=== PATIENT | female | born 1960 | race Caucasian/White ===

== ENCOUNTER 2021-10-08 10:46 | Emergency (ER) | payer OTHER ==
[~2021-10-08] VITALS: Ht 157.5 cm; Wt 68.2 kg
[2021-10-08 10:54] VITALS: BP 167/107
[2021-10-08 12:26] LABS: BASOPHILS % (AUTO) 0.5 % (0.0-2.0); EOSINOPHILS % (AUTO) 0.4 % (1.0-6.0); HEMATOCRIT 43.9 % (36-46); LYMPHOCYTES # (AUTO) 1.1 K/uL (1.0-4.8); LYMPHOCYTES % (AUTO) 10.2 % (22.0-44.0); MEAN CORPUSCULAR HEMOGLOBIN 30.2 pg (26.0-34.0); MEAN CORPUSCULAR HGB CONC 34.2 G/dL (31.0-37.0); MEAN CORPUSCULAR VOLUME 88 fL (80-100); MONOCYTES # (AUTO) 0.5 K/uL (0.1-1.0); MONOCYTES % (AUTO) 4.9 % (2.0-9.0); NEUTROPHILS # (AUTO) 9.2 K/uL (1.8-7.7); PLATELET COUNT (AUTO) 298 K/uL (150-450); RED BLOOD CELL COUNT(AUTO) 4.98 MIL/uL (4.00-5.20); RED CELL DISTRIBUTION WIDTH 14.1 % (11.5-14.5)
[2021-10-08 12:35] LABS: ANION GAP 9 mmol/L (8-16); CALCIUM, TOTAL 9.7 mg/dL (8.8-10.5); CARBON DIOXIDE 26 mmol/L (22-29); CHLORIDE 104 mmol/L (98-107); GLOMERULAR FILTR. RATE CALC 50 mL/min (>60); GLUCOSE,RANDOM 138 mg/dL (70-110); POTASSIUM 4.3 mmol/L (3.5-5.1); SODIUM SERUM 139 mmol/L (136-145); UREA NITROGEN, BLOOD 22 mg/dL (7-18)
[2021-10-08 12:41] LABS: ALANINE AMINOTRANSFERASE 33 U/L (12-78); ALBUMIN 4.2 g/dL (3.4-5.0); ALKALINE PHOSPHATASE 157 U/L (46-116); ASPARTATE AMINOTRANSFERASE 25 U/L (15-37); BILIRUBIN,TOTAL 0.5 mg/dL (0.1-1.0); TOTAL PROTEIN, SERUM 9.2 g/dL (6.4-8.2)
== END 2021-10-08 13:47 | disposition home or self-care (01) ==
LOC: EMS 10:51
DX: F41.9 Anxiety disorder, unspecified (principal); F31.9 Bipolar disorder, unspecified; F20.9 Schizophrenia, unspecified; F17.210 Nicotine dependence, cigarettes, uncomplicated
CPT/HCPCS: 36415; 80053; 85025; 99283; G0480